=== PATIENT | female | born 1975 | race Hispanic/Latino ===

== ENCOUNTER 2018-10-07 21:06 | Emergency (ER) | payer MEDICAID ==
[~2018-10-07 21:06] MED LIST: BREX3TAB PO; ERGO500014 PO; HYD50 PO; OXCA600T18 PO; PHENY100 PO; PRAV20TA4 PO; PROM12.510 PO; TRAZ-221 PO; VORT10TA PO
[2018-10-07 21:59] LABS: BASOPHILS % (AUTO) 0.8 % (0.0-5.0); EOSINOPHILS % (AUTO) 3.1 % (0.0-8.0); HEMATOCRIT 37.2 % (36-48); LYMPHOCYTES % (AUTO) 44.7 % (21.0-51.0); MEAN CORPUSCULAR HEMOGLOBIN 31.9 pg (27.0-33.0); MEAN CORPUSCULAR HGB CONC 34.4 g/dL (32.0-36.0); MEAN CORPUSCULAR VOLUME 92.7 fL (79-99); MONOCYTES % (AUTO) 8.7 % (3.0-13.0); NEUTROPHILS % (AUTO) 42.7 % (40.0-77.0); PLATELET COUNT (AUTO) 299 K/uL (130-400); RED BLOOD CELL COUNT(AUTO) 4.02 MIL/uL (4.00-5.50); RED CELL DISTRIBUTION WIDTH 13.1 % (11.0-15.5); WHITE BLOOD COUNT (AUTO) 5.5 K/uL (4.8-10.8)
[2018-10-07 22:20] LABS: CREATININE 0.8 mg/dL (0.5-1.5); POTASSIUM 4.4 mmol/L (3.5-5.1)
[2018-10-07 22:24] LABS: ALBUMIN 3.4 g/dL (3.5-5.0); BILIRUBIN,TOTAL 0.1 mg/dL (0.2-1.0); PHENYTOIN (DILANTIN) 12.6 mcg/mL (10.0-20.0); TOTAL PROTEIN, SERUM 6.5 g/dL (6.0-8.3)
[2018-10-07] MEDS ORDERED: LORAZEPAM 2 MG/ML 1 ML VIAL ONE (23:03)
[2018-10-07 23:47] LABS: APPEARANCE,URINE Clear (CLEAR); BILIRUBIN,URINE Negative (NEGATIVE); COLOR,URINE Yellow (YELLOW); GLUCOSE, URINE (UA) Negative (NEGATIVE); KETONES,URINE Negative (NEGATIVE); LEUKOCYTE ESTERASE ,URINE Trace (NEGATIVE); NITRATE,URINE Negative (NEGATIVE); OCCULT BLOOD,URINE Negative (NEGATIVE); PH,URINE 6.5 (5.0-8.0); PROTEIN,URINE Negative (NEGATIVE); UROBILINOGEN,URINE 0.2 mg/dL (0.2-1.0)
[2018-10-07 23:54] LABS: AMPHET/METH SCREEN,URINE NEGATIVE (NEGATIVE); BARBITURATE SCREEN, URINE NEGATIVE (NEGATIVE); BENZODIAZEPINES SCREEN,URINE NEGATIVE (NEGATIVE); CANNABINOID SCREEN,URINE NEGATIVE (NEGATIVE); COCAINE SCREEN,URINE NEGATIVE (NEGATIVE); OPIATE SCREEN,URINE NEGATIVE (NEGATIVE); PHENCYCLIDINE SCREEN,URINE NEGATIVE (NEGATIVE)
[2018-10-08 00:06] LABS: RBC,URINE None Seen /HPF (0-1); WBC,URINE None Seen /HPF (0-1); YEAST,URINE BUDDING None Seen /HPF (None Seen)
[2018-10-08 00:07] LABS: BACTERIA,URINE None Seen /HPF (None Seen)
== END 2018-10-08 00:13 | disposition home or self-care (01) ==
LOC: EDH 21:06
DX: G40.909 Epilepsy, unspecified, not intractable, without status epilepticus (principal); E78.5 Hyperlipidemia, unspecified; Z90.710 Acquired absence of both cervix and uterus; Z90.10 Acquired absence of unspecified breast and nipple; Z88.2 Allergy status to sulfonamides; Z88.8 Allergy status to other drugs, medicaments and biological substances; Z85.3 Personal history of malignant neoplasm of breast
CPT/HCPCS: 36415; 80053; 80164; 80185; 80305; 81001; 85025; 96374; 99283; J2060

== ENCOUNTER 2023-01-26 07:04 | Day surgery (SDC) | payer OTHER, MEDICARE ==
[2023-01-24 09:19] LABS: EOSINOPHILS % (AUTO) 3.8 % (0.0-8.0); HEMATOCRIT 39.8 % (36-48); LYMPHOCYTES % (AUTO) 35.1 % (21.0-51.0); MEAN CORPUSCULAR HEMOGLOBIN 25.6 pg (27.0-33.0); MEAN CORPUSCULAR HGB CONC 31.7 g/dL (32.0-36.0); MEAN CORPUSCULAR VOLUME 80.9 fL (79-99); MONOCYTES % (AUTO) 8.5 % (3.0-13.0); PLATELET COUNT (AUTO) 319 K/uL (130-400); RED BLOOD CELL COUNT(AUTO) 4.92 MIL/uL (4.00-5.50); RED CELL DISTRIBUTION WIDTH 14.8 % (11.0-15.5); WHITE BLOOD COUNT (AUTO) 6.1 K/uL (4.8-10.8)
[2023-01-24 09:29] LABS: INR 0.97 (0.85-1.15); PROTHROMBIN TIME 10.6 SEC (9.6-11.6)
[2023-01-24 09:31] LABS: PARTIAL THROMBOPLASTIN TIME 26.5 SEC (26.3-35.5)
[2023-01-24 09:33] LABS: ALBUMIN 3.9 g/dL (3.5-5.0); CREATININE 0.9 mg/dL (0.5-1.5); POTASSIUM 4.2 mmol/L (3.5-5.1); TOTAL PROTEIN, SERUM 7.7 g/dL (6.0-8.3)
[2023-01-24 09:49] VITALS: BP 97/97
[2023-01-26] VITALS (19 sets, daily range): BP systolic 97–113; BP diastolic 54–69
[~2023-01-26] VITALS: Ht 162.6 cm; Wt 69.9 kg
[~2023-01-26 07:04] MED LIST changes: +BENZ1TAB83 PO; +BREX2TAB PO; -BREX3TAB PO; +CYCL-309 PO; +DIVA-78 PO; +GABA600T10 PO; -HYD50 PO; +HYDR100C2 PO; +META-25 PO; +MIDO10TA PO; +NAPR-1023 PO; +OMEP-420 PO; +ONDA-105 PO; -OXCA600T18 PO; -PHENY100 PO; -PROM12.510 PO; +QUET100T34 PO; +TRAM-355 PO; -TRAZ-221 PO
[2023-01-26] MEDS ORDERED: LACTATED RINGERS 1000ML 1,000 ML IV ONE (07:46)
[2023-01-26] MEDS ORDERED: CEFAZOLIN SODIUM 2 GM VIAL ONE (07:46)
[2023-01-26] MEDS ORDERED: SCOPOLAMINE HYDROBROMIDE 1 EACH ADH..PATCH TD ONE ×2 (11:17→11:30)
[2023-01-26] MEDS ORDERED: FENTANYL CITRATE PF 50 MCG/1 ML 2ML VIAL ONE ×3 (11:48→15:47)
[2023-01-26] MEDS ORDERED: PROPOFOL 10 MG/ML 20ML VIAL IV ONE (11:48)
[2023-01-26] MEDS ORDERED: ROCURONIUM 10MG/1ML SYR 10 MG/ML ML ONE ×2 (11:48→13:05)
[2023-01-26] MEDS ORDERED: GLYCOPYRROLATE 1 MG/5 ML SYRINGE ONE (11:48)
[2023-01-26] MEDS ORDERED: MIDAZOLAM HCL 1 MG/ML 2ML VIAL ONE (11:54)
[2023-01-26] MEDS ORDERED: CEFAZOLIN SODIUM 2 GM VIAL IVPB ONE (12:13)
[2023-01-26] MEDS ORDERED: CEFAZOLIN SODIUM 1 GM VIAL ONE ×2 (12:13→13:20)
[2023-01-26] MEDS ORDERED: GENTAMICIN SULFATE 80 MG/2 ML VIAL ONE ×2 (12:13→13:21)
[2023-01-26] MEDS ORDERED: CEFAZOLIN SODIUM 1 GM VIAL IVPB ONE (12:29)
[2023-01-26] MEDS ORDERED: GENTAMICIN SULFATE 80 MG/2 ML VIAL IM ONE (12:31)
[2023-01-26] MEDS ORDERED: ONDANSETRON 4MG INJ ONE (12:49)
[2023-01-26] MEDS ORDERED: ACETAMINOPHEN 1,000 MG/100 ML VIAL IV ONE (12:56)
[2023-01-26] MEDS ORDERED: PHENYLEPHRINE HCL 10 MG/ML 1ML VIAL IV ONE (14:02)
[2023-01-26] MEDS ORDERED: NEOSTIGMINE 5MG/5ML SYR IV ONE (15:21)
[2023-01-26] MEDS ORDERED: FENTANYL CITRATE PF 50 MCG/1 ML 2ML VIAL IVP ONE (15:54)
[2023-01-26] MEDS ORDERED: KETOROLAC 30MG VIAL (30MG/ML) ONE (15:56)
== END 2023-01-26 18:05 | disposition home or self-care (01) ==
LOC: DAH 07:04
PROVIDERS: ATTEND Plastic Surgery
DX: L90.5 Scar conditions and fibrosis of skin (principal); S21.002A Unspecified open wound of left breast, initial encounter; Z20.822 Contact with and (suspected) exposure to COVID-19; S21.001A Unspecified open wound of right breast, initial encounter; K21.9 Gastro-esophageal reflux disease without esophagitis; F32.A Depression, unspecified; Z85.3 Personal history of malignant neoplasm of breast; Z90.13 Acquired absence of bilateral breasts and nipples; Z79.01 Long term (current) use of anticoagulants; Z79.899 Other long term (current) drug therapy; Z90.710 Acquired absence of both cervix and uterus; Z98.890 Other specified postprocedural states; Z88.2 Allergy status to sulfonamides; Z82.49 Family history of ischemic heart disease and other diseases of the circulatory system; Z83.3 Family history of diabetes mellitus; Z80.9 Family history of malignant neoplasm, unspecified; X58.XXXA Exposure to other specified factors, initial encounter; Y93.89 Activity, other specified; Y92.89 Other specified places as the place of occurrence of the external cause
CPT/HCPCS: 80053; 84703; 85025; 85610; 85730; 87426; 36415; 71045; 93005; 15777; 19380; A6260; C1781; A4663; J7030; J7120 ×2; A4344; A4649 ×3; J3010 ×3; J0690 ×5; J3490; J2710; J1580 ×3; J2250; J2704; J2405; J1885; J2370; A6223; A6446; A6213; A4215; A4223; A4222; A4221; A4600